=== PATIENT | male | born 1965 | race Caucasian/White ===

== ENCOUNTER 2024-04-01 08:08 | Outpatient (CLI) | payer OTHER, SELFPAY | END 2024-04-01 08:09 | disposition home or self-care (01) | LOC: NFLDREF 04-03 12:36 | PROVIDERS: PCP Family Medicine; Referring Provider Family Medicine; Visit Provider Family Medicine | DX: Z00.00 Encounter for general adult medical examination without abnormal findings (principal); I10 Essential (primary) hypertension; Z13.6 Encounter for screening for cardiovascular disorders; Z12.5 Encounter for screening for malignant neoplasm of prostate; Z13.1 Encounter for screening for diabetes mellitus | CPT/HCPCS: 80053; 80061; G0103 ==

== ENCOUNTER 2024-04-08 13:36 | Outpatient (CLI) | payer OTHER, SELFPAY ==
[2024-04-08 14:38] VITALS: BP 172/98; PULSE 93; RESP 18
--- NOTE | 2024-04-08 14:50 | W.PM.STED ---
Stress Test Note Date Date Seen: 04/08/24 Date of test: 04/08/24 Providers Primary care provider: Adam Kelly Stress test physician: Sheyla Wharton Stress Test Note Stress test ordered: Stress Echo Indication for test: Exertional chest pain Stress test medicine: None Results discussion: Resting EKG: Sinus rhythm 67 beats per minute, nonspecific interventricular conduction delay. Resting blood pressure: 151/90 Stress test: Patient is consented on stress test ordered, we proceeded with standard exercise treadmill Cruz protocol. Patient developed chest pain towards the end of 1st age, beginning 2nd stage of exercise. It was the chest pain that he has been feeling with exertion. There were no definitive EKG changes, blood pressure was noted to be hypertensive at 182/100. Patient was able to continue to exercise but stopped at 8 minutes 13 seconds due to his chest discomfort, shortness of breath and reaching exercise capacity. This was consistent with 9.9 Mets of activity. He had a maximum heart rate of 139 beats per minute which was his calculated target heart rate. He had a rate pressure product of 23,470 machine calculated but likely higher as he did get a target heart rate of 139 and this was calculated when his heart rate was 129. There is no definitive ischemia on his EKG. There was no arrhythmia but occasional PVC was seen but not a significant burden. Patient was still exhibiting symptoms of chest discomfort at the end of his monitoring for a stress test. The preliminary echo was concerning for small area anteriorly where there could be some wall motion abnormality, Cardiology over-read is pending. Impression: Subjectively positive, objectively negative EKG portion of this stress test. Follow up suggested: To ED for further monitoring, check troponins given his chest pain and his history does seem to be concerning for exertional angina. We will see if Cardiology can look at this stress test, we will trend troponins and monitor him in the ER at this time.
== END 2024-04-08 13:37 | disposition home or self-care (01) ==
LOC: STRESS 13:43
PROVIDERS: PCP Family Medicine; Visit Provider Family Medicine
DX: R07.9 Chest pain, unspecified (principal)
CPT/HCPCS: 93016; 93325; 93351

== ENCOUNTER 2024-04-08 14:32 | Emergency (ER) | payer OTHER, SELFPAY ==
[2024-04-08] VITALS (23 sets, daily range): BP systolic 132–152; BP diastolic 85–100; PULSE 66–87; RESP 18; TEMP 36.8; O2SAT 94–99; BMI 29.8
--- NOTE | 2024-04-08 14:34 | CRLHL7_ITS ---
For Patients: As a result of the Century Cures Act, medical imaging exams and procedure reports are released immediately into your electronic medical record. You may view this report before your referring provider. If you have questions, please contact your health care provider. INDICATION: Chest pain. TECHNIQUE: Chest 1 views. COMPARISON: None. FINDINGS: Cardiovascular and mediastinum: Heart size and vasculature are normal in caliber and appearance. Lungs and pleural spaces: Lungs are clear. No sign of infiltrate or mass. No sign of pleural effusion. No pneumothorax. Bones and soft tissues: No significant findings. IMPRESSION: No acute or significant findings. Dictated by Koby Edmondson MD @ 04/08/2024 3:10:04 PM (Electronically Signed)
--- NOTE | 2024-04-08 14:38 | ED_ITS ---
HPI - General Adult General Time Seen by Provider: 14:39 <Sheyla Wharton MD - Last Filed: 04/08/24 16:02> Date Seen: 04/08/24 <Sheyla Wharton MD - Last Filed: 04/08/24 16:02> Chief complaint: Chest Pain <Sheyla Wharton MD - Last Filed: 04/08/24 16:02> Stated complaint: Heart pain <Sheyla Wharton MD - Last Filed: 04/08/24 16:02> Time Seen by Provider: 04/08/24 14:33 <Sheyla Wharton MD - Last Filed: 04/08/24 16:02> Source: patient and RN notes reviewed <Sheyla Wharton MD - Last Filed: 04/08/24 16:02> Mode of arrival: ambulatory <Sheyla Wharton MD - Last Filed: 04/08/24 16:02> Limitations: no limitations <Sheyla Wharton MD - Last Filed: 04/08/24 16:02> History of Present Illness HPI narrative: This 58-year-old male is brought over from stress test with chest pain and concern of a possible small area of anterior ischemia seen on the echo. Patient has about a week and a half history where he developed exertional chest pain. 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 He admits he eats later at night, does not eat as healthy as he should. It will take about 10 minutes or so of rest for these chest symptoms to go away. He has never had this before. He was scheduled for stress test today. Within a few minutes of being on the treadmill, developed to the anterior chest pain, would feel it from axilla to axilla in the upper chest. He did feel little short of breath with this. Pain was still present at the end of monitoring, reviewed with patient that I would recommend he come to the ER and have cardiac enzymes done, further monitoring. He did agree and was brought over here. Pain has improved from when he was on the treadmill but is still there. No shortness of breath. The pain is not all away across from his axilla to axilla, just feels it more centralized in the upper chest now. He did not take any aspirin today, is aware that we will give him aspirin and agrees to this. He will have some alcohol on the weekends, usually 3-4 beers on a Friday night. No nicotine use. No illicit substance use. There is a family history of maternal grandfather in mom with cardiac disease. He has had no prior diagnosis. He notes that his cholesterol was recently found to be elevated, he is not on cholesterol medicine. He is treated for hypertension. He has no associated upper respiratory illness, no GI symptoms with his current chest pain. Patient did have a hypertensive response with exercise but does have known hypertension and did not take his medication prior to the test. <Sheyla Wharton MD - Last Filed: 04/08/24 16:02> Related Data Home medications: Previous Rx's ?Medication ?Instructions ?Recorded amlodipine 5 mg tablet 5 mg PO QDAY #30 tabs 03/30/24 nitroglycerin 0.4 mg sublingual 0.4 mg sublingual Q5-15M PRN chest 03/30/24 tablet pain #25 tabs <Sheyla Wharton MD - Last Filed: 04/08/24 16:02> Allergies/adverse reactions: Allergies Allergy/AdvReac Type Severity Reaction Status Date / Time No Known Drug Allergies Allergy Verified 03/30/24 11:13 <Sheyla Wharton MD - Last Filed: 04/08/24 16:02> Review of Systems Status of ROS: Reports: 6 or more systems reviewed and unremarkable except as noted in History and below <Sheyla Wharton MD - Last Filed: 04/08/24 16:02> [facility] Medical History: Medical History HTN, goal below 130/80 ?I10 - Essential (primary) hypertension (ICD-10) Borderline hypertension ?R03.0 - Elevated blood-pressure reading, without diagnosis of hypertension (ICD-10) <Sheyla Wharton MD - Last Filed: 04/08/24 16:02> Social History: Social History Smoking Status: Never smoker How often do you have a drink containing alcohol: 2-4 times a month AUDIT-C Alcohol total score: 2 Non-prescribed substance use: denies use <Sheyla Wharton MD - Last Filed: 04/08/24 16:02> Exam Const: Vital Signs, click to edit/add: Vital Signs - 24 hr 04/08/24 14:34 04/08/24 14:34 04/08/24 15:00 Temperature 98.3 F Pulse Rate 86 Pulse Rate [Right Pulse Oximeter] 86 Respiratory Rate 18 Blood Pressure Blood Pressure [Le ft Upper Arm] 144/97 H Pulse Oximetry 97 95 [facility] 04/08/24 15:15 04/08/24 15:30 04/08/24 15:45 Temperature Pulse Rate 80 73 74 Pulse Rate [Right Pulse Oximeter] Respiratory Rate Blood Pressure Blood Pressure [Le ft Upper Arm] Pulse Oximetry 94 95 96 [facility] 04/08/24 16:00 04/08/24 16:15 04/08/24 16:17 Temperature Pulse Rate 83 77 79 Pulse Rate [Right Pulse Oximeter] Respiratory Rate Blood Pressure 138/94 H Blood Pressure [Le ft Upper Arm] Pulse Oximetry 97 98 97 [facility] 04/08/24 16:30 04/08/24 16:32 04/08/24 16:33 Temperature Pulse Rate 81 81 87 Pulse Rate [Right Pulse Oximeter] Respiratory Rate Blood Pressure 146/100 H Blood Pressure [Le ft Upper Arm] Pulse Oximetry 98 98 96 Oxygen Delivery Oh thod 04/08/24 16:45 04/08/24 17:00 04/08/24 17:01 Temperature Pulse Rate 77 81 76 Pulse Rate [Right Pulse Oximeter] Respiratory Rate Blood Pressure 152/89 H Blood Pressure [Le ft Upper Arm] Pulse Oximetry 99 98 [facility] 04/08/24 17:15 04/08/24 17:30 04/08/24 17:45 Temperature Pulse Rate 78 84 80 Pulse Rate [Right Pulse Oximeter] Respiratory Rate Blood Pressure Blood Pressure [Le ft Upper Arm] Pulse Oximetry 98 98 98 [facility] 04/08/24 18:00 04/08/24 18:02 09/05/24 18:15 Temperature Pulse Rate 77 74 78 Pulse Rate [Right Pulse Oximeter] Respiratory Rate Blood Pressure 132/85 Blood Pressure [Le ft Upper Arm] Pulse Oximetry 97 97 97 Oxygen Delivery Me thod Patient was able to ambulate from stressed chest room over to the ED, gait is normal. Pupils equal round reactive, sclera clear, face atraumatic. Does have reddish cheeks and some reddish nose with some vascular changes that could be consistent with rosacea. Able to speak in complete sentences. Neck is supple, no jugular vein distension, no adenopathy, no thyromegaly masses or nodules. Lungs are clear, good air entry, no wheezing or crackles. CV regular rate and rhythm, no murmur, normal S1-S2, no S3-S4. Abdomen is soft, nontender, nondistended, no organomegaly. He has no lower extremity edema. <Sheyla Wharton MD - Last Filed: 04/08/24 16:02> Vital Signs, click to edit/add: Vital Signs - 24 hr 04/08/24 14:34 04/08/24 14:34 04/08/24 15:00 Temperature 98.3 F Pulse Rate 86 Pulse Rate [Right Pulse Oximeter] 86 Respiratory Rate 18 Blood Pressure Blood Pressure [Le ft Upper Arm] 144/97 H Pulse Oximetry 97 95 [address] [facility] 04/08/24 15:15 04/08/24 15:30 04/08/24 15:45 Temperature Pulse Rate 80 73 74 Pulse Rate [Right Pulse Oximeter] Respiratory Rate Blood Pressure Blood Pressure [Le ft Upper Arm] Pulse Oximetry 94 95 96 Oxygen Delivery Oh thod 04/08/24 16:00 04/08/24 16:15 04/08/24 16:17 Temperature Pulse Rate 83 77 79 Pulse Rate [Right Pulse Oximeter] Respiratory Rate Blood Pressure 138/94 H Blood Pressure [Le ft Upper Arm] Pulse Oximetry 97 98 97 Oxygen Delivery Oh thod 04/08/24 16:30 04/08/24 16:32 04/08/24 16:33 Temperature Pulse Rate 81 81 87 Pulse Rate [Right Pulse Oximeter] Respiratory Rate Blood Pressure 146/100 H Blood Pressure [Le ft Upper Arm] Pulse Oximetry 98 98 [address] [facility] 04/08/24 16:45 04/08/24 17:00 04/08/24 17:01 Temperature Pulse Rate 77 81 76 Pulse Rate [Right Pulse Oximeter] Respiratory Rate Blood Pressure 152/89 H Blood Pressure [Le ft Upper Arm] Pulse Oximetry 99 98 98 Oxygen Delivery Me thod 04/08/24 17:15 04/08/24 17:30 04/08/24 17:45 Temperature Pulse Rate 78 84 80 Pulse Rate [Right Pulse Oximeter] Respiratory Rate Blood Pressure Blood Pressure [Le ft Upper Arm] Pulse Oximetry 98 98 98 Oxygen Delivery Me thod 04/08/24 18:00 04/08/24 18:02 04/08/24 18:15 Temperature Pulse Rate 77 74 78 Pulse Rate [Right Pulse Oximeter] Respiratory Rate Blood Pressure 132/85 Blood Pressure [Le ft Upper Arm] Pulse Oximetry 97 97 97 Oxygen Delivery Me thod <Palomo Jenkins DO - Last Filed: 04/08/24 18:34> Documenting provider has reviewed patient's vital signs: yes <Sheyla Wharton MD - Last Filed: 04/08/24 16:02> Course Course ED Course: Patient will get a point of care troponin, will give him 324 mg aspirin. He will be on cardiac monitoring, pulse oximetry, portable chest x-ray to be done. Will look at full complement of labs. If his chest pain is not resolving within the next few minutes, will consider nitroglycerin as well. <Sheyla Wharton MD - Last Filed: 04/08/24 16:02> Reevaluation(s) Time of Reevaluation #1: 15:05 <Sheyla Wharton MD - Last Filed: 04/08/24 16:02> Reevaluation #1: Patient's chest discomfort has resolved. Will not be proceeding with nitroglycerin at this time. Waiting troponin results. Likely to talk to Cardiology. <Sheyla Wharton MD - Last Filed: 04/08/24 16:02> Time of Reevaluation #2: 16:00 <Sheyla Wharton MD - Last Filed: 04/08/24 16:02> Reevaluation #2: Have reviewed plan with patient, reviewed the elevated troponin. He would be considered NSTEMI given elevated troponin. His history prior to this certainly was suggestive of angina. I have reviewed with him that he will be started on heparin. Nursing staff is aware of the plan. If he gets recurrent chest pain, EKG, troponin should be rechecked and IV nitroglycerin started. We will be starting ACS heparin. He already received an aspirin. Will be signing over care to my ED partner Dr. Jenkins. <Sheyla Wharton MD - Last Filed: 04/08/24 16:02> Consultations Consultation #1: Spoke with car sealer Dr. Paras Pereira from [facility]. We reviewed the elevated troponin, concern for some anterior changes preliminarily on the echo. Patient is currently chest pain-free. He agrees with initiation of ACS heparin. Patient has unstable angina, will very likely need angiography but is stable at this time. We will do follow-up troponin, they will accept the patient with in 8 hours. They currently have bed delay but will work to get him within the organization within the 8 hour time frame. <Sheyla Wharton MD - Last Filed: 04/08/24 16:02> Time: 15:40 <Sheyla Wharton MD - Last Filed: 04/08/24 16:02> Vital Signs Vital signs: Initial Vital Signs Temperature 98.3 F 04/08/24 14:34 Temperature Source Temporal Artery Scan 04/08/24 14:34 Pulse Rate 86 04/08/24 14:34 Respiratory Rate 18 04/08/24 14:34 Respiratory Effort Normal 04/08/24 14:34 Respiratory Depth Normal 04/08/24 14:34 Blood Pressure 144/97 H 04/08/24 14:34 Blood Pressure Mean 112 H 04/08/24 14:34 Blood Pressure Position Sitting 04/08/24 14:34 Pulse Oximetry 97 04/08/24 14:34 Oxygen Delivery Method Room Air 04/08/24 14:34 Vital Signs Temperature 98.3 F 04/08/24 14:34 Pulse Rate 86 04/08/24 14:34 Respiratory Rate 18 04/08/24 14:34 Blood Pressure 144/97 H 04/08/24 14:34 Pulse Oximetry 97 04/08/24 14:34 Oxygen Delivery Method Room Air 04/08/24 14:34 Temperature 98.3 F 04/08/24 14:34 Pulse Rate 78 04/08/24 18:15 Respiratory Rate 18 04/08/24 14:34 Blood Pressure 132/85 04/08/24 18:02 Pulse Oximetry 97 04/08/24 18:15 Oxygen Delivery Method Room Air 04/08/24 14:34 <Sheyla Wharton MD - Last Filed: 04/08/24 16:02> Initial Vital Signs Temperature 98.3 F 04/08/24 14:34 Temperature Source Temporal Artery Scan 04/08/24 14:34 Pulse Rate 86 04/08/24 14:34 Respiratory Rate 18 04/08/24 14:34 Respiratory Effort Normal 04/08/24 14:34 Respiratory Depth Normal 04/08/24 14:34 Blood Pressure 144/97 H 04/08/24 14:34 Blood Pressure Mean 112 H 04/08/24 14:34 Blood Pressure Position Sitting 04/08/24 14:34 Pulse Oximetry 97 04/08/24 14:34 Oxygen Delivery Method Room Air 04/08/24 14:34 Vital Signs Temperature 98.3 F 04/08/24 14:34 Pulse Rate 86 04/08/24 14:34 Respiratory Rate 18 04/08/24 14:34 Blood Pressure 144/97 H 04/08/24 14:34 Pulse Oximetry 97 04/08/24 14:34 Oxygen Delivery Method Room Air 04/08/24 14:34 Temperature 98.3 F 04/08/24 14:34 Pulse Rate 78 04/08/24 18:15 Respiratory Rate 18 04/08/24 14:34 Blood Pressure 132/85 04/08/24 18:02 Pulse Oximetry 97 04/08/24 18:15 Oxygen Delivery Method Room Air 04/08/24 14:34 <Palomo Jenkins DO - Last Filed: 04/08/24 18:34> Medications Administered Medications: Generic Name Dose Route Start Last Admin Trade Name Freq PRN Reason Stop Dose Admin Heparin Sodium/Dextrose 25,000 unit in 500 mls @ 0 mls/hr 04/08/24 16:00 04/08/24 16:18 Heparin IV 1,000 unit/hr .Q0M MAMIE 20 mls/hr Administration Protocol Per Protocol Discontinued Medications Generic Name Dose Route Start Last Admin Trade Name Freq PRN Reason Stop Dose Admin Aspirin 324 mg 04/08/24 14:36 04/08/24 14:54 Aspirin 81 Mg Tab.Chew PO 04/08/24 14:37 324 mg ONCE ONE Administration Heparin Sodium (Porcine) 4,000 unit 04/08/24 15:47 04/08/24 16:17 Heparin 5,000 Unit/0.5 Ml Inj IVP 04/08/24 15:48 4,000 unit ONCE ONE Administration <Sheyla Wharton MD - Last Filed: 04/08/24 16:02> Generic Name Dose Route Start Last Admin Trade Name Freq PRN Reason Stop Dose Admin Heparin Sodium/Dextrose 25,000 unit in 500 mls @ 0 mls/hr 04/08/24 16:00 04/08/24 16:18 Heparin IV 1,000 unit/hr .Q0M MAMIE 20 mls/hr Administration Protocol Per Protocol Discontinued Medications Generic Name Dose Route Start Last Admin Trade Name Freq PRN Reason Stop Dose Admin Aspirin 324 mg 04/08/24 14:36 04/08/24 14:54 Aspirin 81 Mg Tab.Chew PO 04/08/24 14:37 324 mg ONCE ONE Administration Heparin Sodium (Porcine) 4,000 unit 04/08/24 15:47 04/08/24 16:17 Heparin 5,000 Unit/0.5 Ml Inj IVP 04/08/24 15:48 4,000 unit ONCE ONE Administration <Palomo Jenkins DO - Last Filed: 04/08/24 18:34> Medical Decision Making MDM Narrative Medical decision making narrative: Patient signed out to me pending transfer. Did not have any further chest pain but a 2nd EKG was done showing normal sinus rhythm with rate 75 beats per minute, a nonspecific intraventricular conduction delay, and normal axis, no ST or T-wave abnormalities. Repeat point of care troponin shante to 0.27. He continues to be pain-free. He will be leaving shortly via EMS and I do not believe further intervention is necessary here in [place]. <Palomo Jenkins DO - Last Filed: 04/08/24 18:34> Lab Data Lab results reviewed: Yes I reviewed the patient's lab results <Sheyla Wharton MD - Last Filed: 04/08/24 16:02> Labs: Lab Results 04/08/24 04/08/24 04/08/24 Range/Units 14:36 14:45 17:45 WBC 9.02 (4.50-11.00) K/uL RBC 5.49 (4.30-5.90) m/uL Hgb 16.5 (13.5-17.5) gm/dL Hct 49.0 (37.0-53.0) % MCV 89 (80-100) fL MCH 30 (26-34) pg MCHC 34 (32-36) gm/dL RDW Coeff of [place] 13.1 (11.5-15.5) % Plt Count 202 (140-440) K/uL Neut % (Auto) 59.3 (42.0-72.0) % Lymph % (Auto) 32.0 (20-44) % [place] % (Auto) 7.3 (0.0-11.0) % Eos % (Auto) 0.8 (0.0-7.0) % Baso % (Auto) 0.3 (0.0-3.0) % Neut # (Auto) 5.34 (1.7-7.0) K/uL Lymph # (Auto) 2.89 (0.90-2.90) K/uL [place] # (Auto) 0.70 (0.00-0.90) K/UL Eos # (Auto) 0.07 (0.00-0.50) K/uL Baso # (Auto) 0.03 (0.00-0.30) K/uL Abs Immat Gran (auto) 0.03 (0.00-0.30) K/uL Imm/Tot Granulo (auto) 0.3 % INR 1.01 (0.91-1.10) APTT 30 (23-33) Seconds Sodium 138 (135-149) mmol/L Potassium 4.2 (3.6-5.1) mmol/L Chloride 103 (96-114) mmol/L Carbon Dioxide 24 (20-32) mmol/L Anion Gap 11 (7-15) mEq/L BUN 16 (7-30) mg/dL Creatinine 1.0 (0.5-1.5) mg/dL Estimated Creat Clear 89.46 Estimated GFR 88 ml/min Glucose 99 (60-115) mg/dL Calcium 9.4 (8.4-10.6) mg/dL Total Bilirubin 1.2 (0.1-1.5) mg/dL AST 31 (12-35) U/L ALT 26 (4-50) U/L Alkaline Phosphatase 101 (40-150) U/L Troponin I 0.10 H* (0.01-0.04) ng/mL NT-Pro-B Natriuret Pep 37 pg/mL Total Protein 7.6 (6.0-8.3) g/dL Albumin 4.8 (3.3-5.0) g/dL POC Troponin I 0.09 H 0.27 H (0.01-0.04) ng/ml <Sheyla Wharton MD - Last Filed: 04/08/24 16:02> Lab Results 04/08/24 04/08/24 04/08/24 Range/Units 14:36 14:45 17:45 WBC 9.02 (4.50-11.00) K/uL RBC 5.49 (4.30-5.90) m/uL Hgb 16.5 (13.5-17.5) gm/dL Hct 49.0 (37.0-53.0) % MCV 89 (80-100) fL MCH 30 (26-34) pg MCHC 34 (32-36) gm/dL RDW Coeff of [place] 13.1 (11.5-15.5) % Plt Count 202 (140-440) K/uL Neut % (Auto) 59.3 (42.0-72.0) % Lymph % (Auto) 32.0 (20-44) % [place] % (Auto) 7.3 (0.0-11.0) % Eos % (Auto) 0.8 (0.0-7.0) % Baso % (Auto) 0.3 (0.0-3.0) % Neut # (Auto) 5.34 (1.7-7.0) K/uL Lymph # (Auto) 2.89 (0.90-2.90) K/uL [place] # (Auto) 0.70 (0.00-0.90) K/UL Eos # (Auto) 0.07 (0.00-0.50) K/uL Baso # (Auto) 0.03 (0.00-0.30) K/uL Abs Immat Gran (auto) 0.03 (0.00-0.30) K/uL Imm/Tot Granulo (auto) 0.3 % INR 1.01 (0.91-1.10) APTT 30 (23-33) Seconds Sodium 138 (135-149) mmol/L Potassium 4.2 (3.6-5.1) mmol/L Chloride 103 (96-114) mmol/L Carbon Dioxide 24 (20-32) mmol/L Anion Gap 11 (7-15) mEq/L BUN 16 (7-30) mg/dL Creatinine 1.0 (0.5-1.5) mg/dL Estimated Creat Clear 89.46 Estimated GFR 88 ml/min Glucose 99 (60-115) mg/dL Calcium 9.4 (8.4-10.6) mg/dL Total Bilirubin 1.2 (0.1-1.5) mg/dL AST 31 (12-35) U/L ALT 26 (4-50) U/L Alkaline Phosphatase 101 (40-150) U/L Troponin I 0.10 H* (0.01-0.04) ng/mL NT-Pro-B Natriuret Pep 37 pg/mL Total Protein 7.6 (6.0-8.3) g/dL Albumin 4.8 (3.3-5.0) g/dL POC Troponin I 0.09 H 0.27 H (0.01-0.04) ng/ml <Palomo Jenkins DO - Last Filed: 04/08/24 18:34> Imaging Data Chest x-ray: Attestation: I have reviewed the pertinent imaging results. <Sheyla Vásquez MD - Last Filed: 04/08/24 16:02> Radiologist's impression: Patient: JIMBO MCFADDEN Facility:?[facility] Patient ID:?[id number] Site Patient ID:?[id number]. Site :?[id number] Study:?XRay-Chest PORTABLE-04/08/2024 3:08:30 PM Ordering Physician:Makenna Carrion Final Report: INDICATION: Chest pain. TECHNIQUE: Chest 1 views. COMPARISON: None. FINDINGS: Cardiovascular and mediastinum: Heart size and vasculature are normal in caliber and appearance. Lungs and pleural spaces: Lungs are clear. No sign of infiltrate or mass. No sign of pleural effusion. No pneumothorax. Bones and soft tissues: No significant findings. IMPRESSION: No acute or significant findings. Dictated by Koby Edmondson MD @ 04/08/2024 3:10:04 PM (Electronic Signature) <Sheyla Wharton MD - Last Filed: 04/08/24 16:02> ECG Data Attestation: I personally reviewed and interpreted this ECG as follows: (Sinus rhythm, 84 beats per minute. There is nonspecific intra conduction delay. No definitive ischemia noted but does have flipped T-waves in lead 3.) <Sheyla Wharton MD - Last Filed: 04/08/24 16:02> Prior ECG tracings: available for review (No significant change.) <Sheyla Wharton MD - Last Filed: 04/08/24 16:02> Discharge Plan Discharge Clinical Impression: Non-ST elevation CA (NSTEMI) <Sheyla Wharton MD - Last Filed: 04/08/24 16:02> Patient Disposition: [facility] <Sheyla Wharton MD - Last Filed: 04/08/24 16:02> Prescriptions: No Action amlodipine 5 mg tablet 5 mg PO QDAY Qty: 30 2RF nitroglycerin 0.4 mg tablet, sublingual 0.4 mg sublingual Q5-15M PRN (Reason: chest pain) Qty: 25 0RF Rx Instructions: do not exceed 3 doses per episode <Sheyla Wharton MD - Last Filed: 04/08/24 16:02> Stand Alone Forms: My[facility] Info Instructions <Sheyla Wharton MD - Last Filed: 04/08/24 16:02>
[2024-04-08] MEDS: ASPIRIN 81 MG TAB.CHEW 324 MG PO (14:54)
[2024-04-08 14:55] LABS: Basophils Absolute Auto 0.03 K/uL (0.00-0.30); Basophils Percent Auto 0.3 % (0.0-3.0); Eosinophils Absolute Auto 0.07 K/uL (0.00-0.50); Eosinophils Percent Auto 0.8 % (0.0-7.0); Hemoglobin* 16.5 gm/dL (13.5-17.5); Immature Granulocytes Abs Auto 0.03 K/uL (0.00-0.30); Immature Granulocytes Pct Auto 0.3 %; Lymphocytes Absolute Auto 2.89 K/uL (0.90-2.90); Mean Corpuscular HGB Conc 34 gm/dL (32-36); Mean Corpuscular Hemoglobin 30 pg (26-34); Mean Corpuscular Volume 89 fL (80-100); Monocytes Percent Auto 7.3 % (0.0-11.0); Neutrophils Absolute Auto 5.34 K/uL (1.7-7.0); Neutrophils Percent Auto 59.3 % (42.0-72.0); Platelet Count* 202 K/uL (140-440); RDW Coefficient of Variation % 13.1 % (11.5-15.5); Red Blood Count 5.49 m/uL (4.30-5.90); White Blood Count* 9.02 K/uL (4.50-11.00)
[2024-04-08 15:01] LABS: Slide Review Reflex No
[2024-04-08 15:06] LABS: Albumin* 4.8 g/dL (3.3-5.0); Chloride* 103 mmol/L (96-114); Potassium* 4.2 mmol/L (3.6-5.1); Sodium* 138 mmol/L (135-149)
[2024-04-08 15:08] LABS: Anion Gap 11 mEq/L (7-15); Aspartate Amino Transferase* 31 U/L (12-35); Bilirubin Total* 1.2 mg/dL (0.1-1.5); Carbon Dioxide* 24 mmol/L (20-32); Est. Creatinine Clearance* 89.46; Estimated Glomerular Filt Rate 88 ml/min
[2024-04-08 15:09] LABS: Alanine Aminotransferase* 26 U/L (4-50); Alkaline Phosphatase* 101 U/L (40-150); Blood Urea Nitrogen* 16 mg/dL (7-30); Glucose* 99 mg/dL (60-115); Total Protein* 7.6 g/dL (6.0-8.3)
[2024-04-08 15:10] LABS: Calcium* 9.4 mg/dL (8.4-10.6)
[2024-04-08 15:21] LABS: NT Pro B Type NatriureticPept* 37 pg/mL
[2024-04-08 15:26] LABS: Troponin, Point-of-Care* 0.09 ng/ml (0.01-0.04)
[2024-04-08 16:11] LABS: INR 1.01 (0.91-1.10); Partial Thromboplastin Time* 30 Seconds (23-33); Prothrombin Time 13.9 Seconds
[2024-04-08] MEDS: HEPARIN 5,000 UNIT/0.5 ML INJ 4000 UNIT IVP (16:17)
[2024-04-08] MEDS: HEPARIN 25,000 UNIT/500 ML BAG 20 UNIT IV (16:18)
[2024-04-08 18:23] LABS: Troponin, Point-of-Care* 0.27 ng/ml (0.01-0.04)
== END 2024-04-08 19:18 | disposition short-term general hospital (02) ==
PROVIDERS: Family Medicine; Emergency Provider Student in an Organized Health Care Education/Training Program; PCP Family Medicine
DX: I21.4 Non-ST elevation (NSTEMI) myocardial infarction (principal)
CPT/HCPCS: 36415; 71045; 80053; 83880; 84484; 85025; 85610; 85730; 93005; 94761; 99284; 99285; A0425; A0434; A9270; J1644

== ENCOUNTER 2024-05-25 09:41 | Outpatient (CLI) | payer OTHER, SELFPAY | END 2024-05-25 09:42 | disposition home or self-care (01) | LOC: NFLDREF 05-27 11:10 | PROVIDERS: PCP Family Medicine; Referring Provider Family Medicine; Visit Provider Family Medicine | DX: E78.00 Pure hypercholesterolemia, unspecified (principal); I10 Essential (primary) hypertension; I25.10 Atherosclerotic heart disease of native coronary artery without angina pectoris | CPT/HCPCS: 80053; 80061 ==

== ENCOUNTER 2025-03-23 08:01 | Outpatient (CLI) | payer OTHER, SELFPAY | END 2025-03-23 08:02 | disposition home or self-care (01) | LOC: NFLDREF 03-28 15:45 | PROVIDERS: PCP Family Medicine; Referring Provider Family Medicine; Visit Provider Family Medicine | DX: I10 Essential (primary) hypertension (principal); E78.00 Pure hypercholesterolemia, unspecified | CPT/HCPCS: 80053; 80061 ==